=== PATIENT | female | born 1970 | race Caucasian/White ===

== ENCOUNTER 2020-04-08 23:18 | Emergency (ER) | payer OTHER ==
[2020-04-08 23:34] VITALS: BMI 29.7
[2020-04-09] MEDS ORDERED: METHADONE (DETOX) 10 MG, METHADONE (DETOX) 5 MG PO ONE (00:14)
[2020-04-09] MEDS ORDERED: METHADONE HCL 10 MG TABLET ONE (00:23)
[2020-04-09] MEDS ORDERED: METHADONE HCL 5 MG TABLET ONE (00:23)
[2020-04-09 06:24] VITALS: TEMP 98.2
[2020-04-09 11:09] VITALS: BP 129/82; PULSE 68
== END 2020-04-09 11:09 | disposition home or self-care (01) ==
LOC: JER 23:18
DX: F11.20 Opioid dependence, uncomplicated (principal)
CPT/HCPCS: 71046-TC-FY; 99284-25